=== PATIENT | male | born 1995 ===

== ENCOUNTER 2020-07-06 08:46 | Day surgery (SDC) | payer BC ==
[~2020-07-06 08:46] MED LIST: Acetaminophen 1,000 MG in Premix Bag 1 BAG IV ONE; Bupivacaine 0.5% 30 ML SDV ONE; Dexamethasone 4 MG/ML 5 ML MDV ONE; HYDROmorphone 2 MG/ML Syringe ONE; Ketorolac 30 MG/ML SDV ONE; Lactated Ringers 1,000 ML IV SCH; Lidocaine 2% 5 ML SDV ONE; Midazolam 1 MG/ML 2 ML SDV ONE; Octyl 2-Cyanoacrylate 1 Tube ONE; Ondansetron 4 MG/2 ML SDV ONE; Pregabalin 75 MG Cap PO SCH; Propofol 200 MG/20 ML SDV ONE; Rocuronium Bromide 50 MG/5 ML Syringe ONE; Sodium Chloride 0.9% 20 ML ONE; Sugammadex Sodium 200 MG/2 ML VIAL ONE; ceFAZolin 2 GM in Premix Bag 1 BAG IV ONE; fentaNYL 100 MCG/2 ML SDV ONE
--- NOTE | 2020-07-06 09:19 | PCM.PREANE ---
Preanesthetic Assessment - Anesthesia/Transfusion/Family Hx Anesthesia History: Prior Anesthesia Without Reaction Family History of Anesthesia Reaction: No Transfusion History: No Prior Transfusion(s) - Review of Systems General: No Symptoms Pulmonary: No Symptoms Cardiovascular: No Symptoms Gastrointestinal: No Symptoms Neurological: No Symptoms Other: Reports: None - Physical Assessment NPO Status Date: 07/06/20 NPO Status Time: 00:01 Height: 5 ft 9 in Weight: 164 lb ASA Class: 1 Mental Status: Alert & Oriented x3 Airway Class: Mallampati = 2 Dentition: Reports: Normal Dentition ROM/Head Extension: Full Lungs: Clear to Auscultation, Normal Respiratory Effort Cardiovascular: Regular Rate, Regular Rhythm - Allergies Allergies/Adverse Reactions: Allergies Allergy/AdvReac Type Severity Reaction Status Date / Time No Known Allergies Allergy Verified 07/05/20 09:28 - Anesthesia Plan Pre-Op Medication Ordered: None - Acknowledgements Anesthesia Type Planned: General Anesthesia Pt an Appropriate Candidate for the Planned Anesthesia: Yes Alternatives and Risks of Anesthesia Discussed w Pt/Guardian: Yes Pt/Guardian Understands and Agrees with Anesthesia Plan: Yes Additional Comments: npo after mn no cv or pul problems tob none etoh occ par no questions PreAnesthesia Questionnaire HEENT History: Reports: None Cardiovascular History: Reports: None Respiratory History: Reports: None Gastrointestinal History: Reports: None Genitourinary History: Reports: None Musculoskeletal History: Reports: None Neurological History: Reports: None Psychiatric History: Reports: None Endocrine/Metabolic History: Reports: None Hematologic History: Reports: None Immunologic History: Reports: None Oncologic (Cancer) History: Reports: None Dermatologic History: Reports: Other (See Below) Other Dermatologic History: rash on legs - Past Surgical History Head Surgeries/Procedures: Reports: None HEENT Surgical History: Reports: None Cardiovascular Surgical History: Reports: None Respiratory Surgical History: Reports: None GI Surgical History: Reports: Hernia, Inguinal Male Surgical History: Reports: None Endocrine Surgical History: Reports: None Neurological Surgical History: Reports: None Musculoskeletal Surgical History: Reports: None Oncologic Surgical History: Reports: None Dermatological Surgical History: Reports: None - SUBSTANCE USE Tobacco Use Status *Q: Never Tobacco User Recreational Drug Use History: No - HOME MEDS Home Medications: Home Meds . [No Known Home Meds] 07/05/20 [History] - CURRENT (IN HOUSE) MEDS Current Meds: Current Medications Lactated Ringer's (Ringers, Lactated) 1,000 mls @ 125 mls/hr IV ASDIRECTED ELINA Pregabalin (Pregabalin 75 Mg Cap) 150 mg PO DAILY ELINA Discontinued Medications Bupivacaine HCl (Bupivacaine 0.5% 30 Ml Sdv) Confirm Administered Dose 30 ml .ROUTE .STK-MED ONE Stop: 07/06/20 07:49 Dexamethasone (Dexamethasone 4 Mg/Ml 5 Ml Mdv) Confirm Administered Dose 20 mg .ROUTE .STK-MED ONE Stop: 07/06/20 07:54 Fentanyl (Fentanyl 100 Mcg/2 Ml Sdv) Confirm Administered Dose 100 mcg .ROUTE .STK-MED ONE Stop: 07/06/20 07:54 Hydromorphone HCl (Hydromorphone 2 Mg/Ml Syringe) Confirm Administered Dose 2 mg .ROUTE .STK-MED ONE Stop: 07/06/20 07:55 Cefazolin Sodium/Dextrose 2 gm (/ Premix) 50 mls @ 100 mls/hr IV ONETIME ONE Stop: 07/04/20 11:04 Acetaminophen 1,000 mg/ Premix 100 mls @ 400 mls/hr IV NOW ONE Stop: 07/06/20 05:14 Sodium Chloride (Normal Saline) Confirm Administered Dose 20 mls @ as directed .ROUTE .STK-MED ONE Stop: 07/06/20 07:58 Ketorolac Tromethamine (Ketorolac 30 Mg/Ml Sdv) Confirm Administered Dose 30 mg .ROUTE .STK-MED ONE Stop: 07/06/20 07:54 Lidocaine (Lidocaine 2% 5 Ml Sdv) Confirm Administered Dose 5 ml .ROUTE .STK-MED ONE Stop: 07/06/20 07:54 Midazolam HCl (Midazolam 1 Mg/Ml 2 Ml Sdv) Confirm Administered Dose 2 mg .ROUTE .STK-MED ONE Stop: 07/06/20 07:55 Octyl Cyanoacrylate (Octyl 2-Cyanoacrylate 1 Tube) Confirm Administered Dose 1 applic .ROUTE .STK-MED ONE Stop: 07/06/20 07:49 Ondansetron HCl (Ondansetron 4 Mg/2 Ml Sdv) Confirm Administered Dose 4 mg .ROUTE .STK-MED ONE Stop: 07/06/20 07:54 Propofol (Propofol 200 Mg/20 Ml Sdv) Confirm Administered Dose 600 mg .ROUTE .STK-MED ONE Stop: 07/06/20 07:54 Rocuronium [place] (Rocuronium [place] 50 Mg/5 Ml Syringe) Confirm Administered Dose 50 mg .ROUTE .STAXON [employer]-MED ONE Stop: 07/06/20 07:57 Sugammadex Sodium (Sugammadex Sodium 200 Mg/2 Ml Vial) Confirm Administered Dose 200 mg .ROUTE .STBioDermMED ONE Stop: 07/06/20 07:57
[2020-07-06] MEDS ORDERED: Famotidine 20 MG/2 ML SDV ONE (09:43)
[2020-07-06] MEDS ORDERED: Propofol 200 MG/20 ML SDV ONE ×2 (10:52→10:53)
--- NOTE | 2020-07-06 11:37 | PCM.OPNOTE ---
- General Post-Op/Procedure Note Date of Surgery/Procedure: 07/06/20 Operative Procedure(s): left inguinal hernia repair - laparoscopic Findings: left indirect inguinal hernia dictation number [id number] Pre Op Diagnosis: left inguinal hernia Post-Op Diagnosis: left indirect inguinal hernia Anesthesia Technique: General ET Tube Primary Surgeon: Bry Willard Pathology: none EBL in mLs: 5 Complications: None Condition: Good
--- NOTE | 2020-07-06 12:52 | PCM.POSTAN ---
POST ANESTHESIA ASSESSMENT - MENTAL STATUS Mental Status: Alert (no anesthetic problems), Oriented - VITAL SIGNS Vital Signs: Last Vital Signs Temp 98.8 F 07/06/20 11:43 Pulse 63 07/06/20 12:38 Resp 12 07/06/20 12:38 BP 92/49 L 07/06/20 12:38 Pulse Ox 97 07/06/20 12:38 - RESPIRATORY Respiratory Status: Respiratory Rate WNL, Airway Patent, O2 Saturation Stable - CARDIOVASCULAR CV Status: Pulse Rate WNL, Blood Pressure Stable - GASTROINTESTINAL GI Status: No Symptoms - POST OP HYDRATION Hydration Status: Adequate & Stable
--- NOTE | 2020-07-06 14:07 | PCM48HPAN ---
Post Anesthesia Note - EVALUATION WITHIN 48HRS OF ANESTHETIC Vital Signs in Normal Range: Yes Patient Participated in Evaluation: Yes Respiratory Function Stable: Yes Airway Patent: Yes Cardiovascular Function Stable: Yes Hydration Status Stable: Yes Pain Control Satisfactory: Yes Nausea and Vomiting Control Satisfactory: Yes Mental Status Recovered: Yes Vital Signs: Last Vital Signs Temp 97.7 F 07/06/20 12:43 Pulse 65 07/06/20 13:20 Resp 14 07/06/20 13:20 BP 97/50 L 07/06/20 13:20 Pulse Ox 98 07/06/20 13:20
--- NOTE | 2020-07-07 09:49 | OR ---
SURGEON: ISA VILLANUEVA MD DATE OF PROCEDURE: 07/06/2020 PREOPERATIVE DIAGNOSIS: Left inguinal hernia. POSTOPERATIVE DIAGNOSIS: Left indirect inguinal hernia. PROCEDURE PERFORMED: Laparoscopic inguinal hernia repair with mesh. PRIMARY SURGEON: Isa Villanueva MD ANESTHESIA: General. ESTIMATED BLOOD LOSS: 5 mL. SPECIMENS: None. COMPLICATIONS: None. REASON FOR PROCEDURE: The patient is a pleasant 24-year-old gentleman who has had a bulge in his left groin for the last couple of months. it will pop out, he is always able to reduce it. He would like to have it repaired. The patient also had a right inguinal hernia repair at age 9. No hernia currently felt on that side. I did go over with the patient again the risks, goals, and alternatives of the hernia repair. Risks include, but are not limited to bleeding, infection, mesh infection, chronic pain, nerve entrapment, injury to underlying structures such as spinal cord leading to testicle damage, urinary retention, need to convert to open. The patient understands and wishes to proceed. The patient would also like me to look on the right side if there is any recurrence to fix that. OPERATION NARRATIVE: The patient was brought back to the OR. He was prepped and draped in usual sterile fashion. Preoperative antibiotics were given. SCDs were placed and anesthesia was provided by the anesthesia team. After time-out was performed, an infraumbilical incision was made. This was carried down to the external rectus fascia. A small approximately 1 cm incision was made. The underlying rectus muscle was atraumatically split down to the posterior rectus sheath. Now, a balloon dissecting system was placed to the level of the pubic symphysis and inflated under direct visualization and now the balloon dissecting system was removed and a trocar was placed. Insufflation was began and preperitoneal pneumo was established. Two 5 mm trocars were placed the midline under direct visualization. Now, attention was brought to the left side side. The lateral wall was cleared. Now, the patient did not appear to have a direct inguinal hernia. He did have an indirect inguinal hernia sac. This was carefully dissected off the spermatic vessels, taking care not to injure the vas or spermatic cord. It was a little scarred in. With some gentle blunt dissection, it did come off. Now, a large Bard Max MID was placed. It was placed nicely and laid nice and flat. It was tacked with the absorbable tacks to periosteum of Alirio ligament, and once laterally. It was tucked under the peritoneal reflection. Now, attention was brought to the right side. The right side was dissected out. There was good peritoneal retroflexion and no indirect inguinal hernia. Now, the peritoneal pneumo was released and then reestablished. Mesh on the left side was still appeared in good position. Nothing seemed to tuck underneath the mesh. Now, the pneumoperitoneum was released and the 5 mm trocars were removed and trocar was removed. The anterior rectus fascia was closed with [id number] Vicryl. The trocar sites were all injected again with local and closed with 4-0 Monocryl and Dermabond. At the end of the case, sponge and needle counts were correct and both testicles in the scrotum. The patient was transferred to recovery room in stable condition. Sponge and needle counts were correct. ADY ROUSSEAU /[id number]
== END 2020-07-06 13:45 | disposition home or self-care (01) ==
LOC: MW.SDS 08:46
PROVIDERS: ATTEND Surgery
DX: K40.90 Unilateral inguinal hernia, without obstruction or gangrene, not specified as recurrent (principal)
CPT/HCPCS: 49650; A9270; C1781; J0131; J0690; J1100; J1170; J1885; J2250; J2405; J2704; J3010; J3490; J7120